=== PATIENT | female | born 1935 | race Caucasian/White ===

== ENCOUNTER 2016-07-02 09:57 | Inpatient (IN) ==
[2016-07-02 11:48] LABS: Mean Cell Volume 85.7 fL (80.0-100.0); Mean Corpuscular HGB Conc 31.8 g/dL (31.0-36.0); Mean Corpuscular Hemoglobin 27.3 pg (26.0-34.0); Platelet Count 370 K/mcL (140-440)
[2016-07-02 12:18] LABS: ALT/SGPT 25 U/l (0-40); Albumin 2.6 gm/dL (3.2-5.2); Albumin/Globulin Ratio 0.6 (1.0-2.3); Alkaline Phosphatase 109 U/L (39-117); Blood Urea Nitrogen 26 mg/dl (8-23)
[2016-07-02 12:25] LABS: Band Neutrophils % 8 % (0-10); Lymphocytes % 4 % (15-49); Monocytes % (Manual) 1 % (1-9); Platelet Estimate NORMAL (NORMAL); RBC Morphology NORMAL (NORMAL); Segmented Neutrophils % 87 % (38-78)
[2016-07-02] MEDS ORDERED: VANCOMYCIN PER PHARMACY IV ONE ×2 (12:57→14:52)
[2016-07-02] MEDS ORDERED: VANCOMYCIN 1,000 MG in 0.9 % SODIUM CHLORIDE 250 ML IV ONE (13:00)
--- NOTE | 2016-07-02 13:05 | Emergency Department Note ---
Skin/Abscess/FB HPI - General Chief complaint: Wound/Laceration Stated complaint: Tailbone decubitis Time Seen by Provider: 07/02/16 10:42 Source: other Mode of arrival: EMS - History of Present Illness HPI Narrative: 81-year-old female referred to the wound care clinic today and seen by Dr. Bacon for the first time. He had referred her to the ED to be admitted. She has a deep cubitus ulcer in the coccygeal region. And he is scheduling her for debridement tomorrow. She has Alzheimer's dementia and she is verbally unresponsive, which is her baseline and is cared for by care providers at home as well as her . Her states that she's had a decubiti for many months, but states it has gotten worse in the past week - Related Data Home Medications Medication Instructions Recorded Confirmed Calcium Carbonate/Vitamin D3 1 tab PO TID 05/01/15 07/02/16 [Calcium 600 + Vit D 400 Tablet] Multi Vitamin 1 tab PO DAILY 05/01/15 07/02/16 Aspirin/Calcium Carbonate/Mag 325 mg PO 07/02/16 [Aspirin Buffered 325 mg Tab] Allergies Allergy/AdvReac Type Severity Reaction Status Date / Time nitrofurantoin Allergy Unknown Verified 07/02/16 10:02 [From Furadantin] Sulfa (Sulfonamide Allergy Unknown Verified 07/02/16 10:02 Antibiotics) Review of Systems Constitutional: Denies: fever Eyes: Denies: eye pain ENT ED: Denies: ear pain Cardiovascular: Denies: chest pain Respiratory: Denies: cough Integumentary: Reports: as per HPI, other (large decitus ulcer sacrococcygeal region) Past Medical History - Past Medical History Medical history: Reports: dementia Physical Exam - General Limitations: no limitations General appearance: alert - Head Head exam: atraumatic - Eye Eye exam: Present: normal appearance - ENT ENT exam: normal exam - Neck Neck exam: Present: normal inspection, full ROM - Chest Chest inspection: Present: normal inspection - Respiratory Respiratory exam: Present: normal lung sounds bilaterally, respiratory distress - Cardiovascular Cardiovascular exam: Present: regular rate, normal rhythm - Abdominal Exam Abdominal exam: Present: soft, distention - Extremities Exam Extremities exam: Present: normal inspection, full ROM - Back Exam Back exam: Present: other (large decubitus ulcer posterior saccral region) - Neurological Exam Neurological exam: Absent: motor sensory deficit - Psychiatric Psychiatric exam: Present: other (Alzheimer dementia with aphasia) Course Vital Signs Temperature 97.0 F L 07/02/16 09:58 Pulse Rate 99 H 07/02/16 09:58 Respiratory Rate 20 07/02/16 09:58 Blood Pressure 121/67 07/02/16 09:58 Pulse Oximetry (%) 100 07/02/16 09:58 Temperature 97.0 F L 07/02/16 09:58 Pulse Rate 84 07/02/16 12:56 Respiratory Rate 24 07/02/16 12:56 Blood Pressure 117/66 07/02/16 12:56 Pulse Oximetry (%) 97 07/02/16 12:56 Skin/Abscess/Foreign Body - Lab Data Result diagrams: 07/02/16 10:45 07/02/16 10:45 Lab Results 07/02/16 07/02/16 07/02/16 Range/Units 10:45 10:45 10:45 WBC 15.6 H (4.5-11.0) K/mcL RBC 3.40 L (4.00-5.20) M/mcL Hgb 9.3 L (12.0-15.0) g/dL Hct 29.1 L (36.0-48.0) % MCV 85.7 (80.0-100.0) fL MCH 27.3 (26.0-34.0) pg MCHC 31.8 (31.0-36.0) g/dL RDW 15.0 H (11.5-14.5) % Plt Count 370 (140-440) K/mcL MPV 7.7 (7.4-10.4) fL Total Counted 100 Seg Neutrophils % 87 H (38-78) % Band Neutrophils % 8 (0-10) % Lymphocytes % 4 L (15-49) % Monocytes % (Manual) 1 (1-9) % Platelet Estimate Normal (NORMAL) RBC Morphology Normal (NORMAL) VBG Lactic Acid 1.6 (0.5-2.2) mmol/L Sodium 141 (133-145) mmol/L Potassium 4.2 (3.3-5.1) mmol/L Chloride 102 (96-108) mmol/L Carbon Dioxide 28 (22-30) mmol/L Anion Gap 11.0 (8-16) BUN 26 H (8-23) mg/dl Creatinine 0.8 (0.6-1.1) mg/dl GFR Calculation 70 Glucose 112 H (70-105) mg/dL Calcium 9.6 (8.6-10.4) mg/dl Total Bilirubin 0.2 (0.0-1.0) mg/dL AST 32 (0-37) U/l ALT 25 (0-40) U/l Alkaline Phosphatase 109 (39-117) U/L Total Protein 6.7 (5.9-8.4) gm/dL Albumin 2.6 L (3.2-5.2) gm/dL Globulin 4.1 H (2.2-3.7) gm/dL Albumin/Globulin Ratio 0.6 L (1.0-2.3) Disposition Clinical Impression: Decubitus ulcer Condition: Serious Referrals: Priscilla Stock MD [Primary Care Provider] -
--- NOTE | 2016-07-02 14:02 | Consultation ---
DATE OF CONSULTATION: 07/02/2016 REQUESTING PHYSICIAN: Amadeo Narayan MD REASON FOR CONSULTATION: Management of medical issues along with severe sepsis. HISTORY OF CHIEF COMPLAINT: The patient is an 81-year-old with advanced Alzheimer's dementia, nonverbal. She is currently living with her who is the primary care provider. The patient over the last few months has developed right gluteal decubitus ulcer which has progressively gotten worse. Today, she was evaluated in the wound care clinic by Dr. Narayan after she was directed by primary care physician, Dr. Stock with increasing concerns of sepsis and large area of necrotic lesion. The patient was subsequently referred to [facility] for further evaluation. Initial workup was significant for white count of over 15,000 along with sepsis and putrid foul smelling odor with a large 5 x 5 cm area of stage IV decubitus ulcer with underlying cavitation and necrotic tissue with eschar. The patient received first dose of antibiotics and was subsequently admitted under Wound Care Service for antibiotics, wound debridement, continued wound care and as per Dr. Narayan's recommendation, possible surgical consult for colostomy. At the time of examination, no family members are present. The patient is totally nonverbal and no further history could be obtained. Most of the history was reviewed from prior medical records. I discussed the case with wound care physician Dr. Narayan and explained the complexity of wound requiring tertiary Center management, however wound care physician recommended most of the care can be provided [facility] in consultation with surgery. I was asked to manage patient existing medical issues. REVIEW OF SYSTEMS: Ten-point review of systems was attempted, could not be performed. PAST MEDICAL HISTORY: 1. Hyperlipidemia 2. Alzheimer's. 3. Hypertension. 4. History of non-Hodgkin lymphoma. 5. Osteopenia. 6. Compression fractures. 7. Peripheral vascular disease. FAMILY HISTORY: Significant for myocardial infarction in mother. SOCIAL HISTORY: The patient lives alone with her . She has advanced dementia and requires full-time assistance and care from her . The patient carries over a [id number] history of smoking in the past, has been three times. She sees primary care physician, Dr. Priscilla Stock. No significant recent alcoholism. CURRENT MEDICATIONS: List is being verified. 1. Aspirin 325 mg daily. 2. Multivitamin 1 tab daily. 3. Calcium 1 tab t.i.d. ALLERGIES: KNOWN TO: 1. NITROFURANTOIN. 2. SULFA. PHYSICAL EXAMINATION: GENERAL: The patient is totally nonverbal; however, does not appear to be distressed. BMI 20, height 5 feet 7 inches. VITAL SIGNS: Blood pressure 97/60, respiration rate 21, temperature 97, pulse 93, sats 98% on room air. HEENT: Pupils symmetric. Oral cavity is dry. No ear or nose discharge. Head is normocephalic, atraumatic. NECK: No lymphadenopathy. CHEST: S1 and S2 heard, irregular rhythm. Ejection systolic murmur grade 1. Diminished breath sounds at bases, carotid bruit noted. ABDOMEN: Soft, nontender. There is a large 5 x 5 cm area of stage IV decubitus ulcer with overhanging flap and underlying necrotic base with putrid, foul-smelling odor. LOWER EXTREMITIES: No cyanosis or clubbing. No joint swelling. SKIN: Otherwise, no suspicious lesions. PSYCHIATRIC: No anxiety or agitation but nonverbal, does not follow verbal commands. NEURO: Could not be performed. The patient does not follow verbal commands in light of baseline mental status from Alzheimer's. LABS AND IMAGING: White count 15.6, hemoglobin 9.3, platelets 370, lactic acid 1.6, sodium 141, potassium 4.2, creatinine 1.8, BUN 26. LFTs unremarkable. ASSESSMENT AND PLAN: An 81-year-old with infected sacral decubitus ulcer with possible underlying osteomyelitis and sepsis. 1. Severe sepsis by criteria secondary to sacral decubitus ulcer with cellulitis and probably osteomyelitis. Continue broad antibiotic coverage. 2. Sacral decubitus ulcer. Will be managed as per Wound Care including debridement/ wound dressing/possible colostomy. 3. Other prior medical issues. At this time, current medications are being verified and will be restarted on home meds. a. History of Alzheimer's dementia, fairly advanced at baseline. AA:rick Job ID: [id number] Doc ID: [id number] Jayy Narayan MD [facility]
[2016-07-02] MEDS ORDERED: traZODone HCL 50 MG TABLET PO PRN (14:52)
[2016-07-02] MEDS ORDERED: guaiFENesin/CODEINE 10 ML UDC PO PRN (14:52)
[2016-07-02] MEDS ORDERED: MAGNESIUM SULFATE 2 GM/50 ML BAG IV PRN (14:52)
[2016-07-02] MEDS ORDERED: ACETAMINOPHEN 325 MG TABLET PO PRN (14:52)
[2016-07-02] MEDS ORDERED: POTASSIUM CHLORIDE 20 MEQ PACKET PO PRN (14:52)
[2016-07-02] MEDS ORDERED: ACETAMINOPHEN 1,000 MG/100 ML BOTTLE IV PRN (14:52)
[2016-07-02] MEDS ORDERED: ONDANSETRON 4 MG/2 ML VIAL IV PRN (14:52)
[2016-07-02] MEDS: 0.9 % SODIUM CHLORIDE 1,000 ML IV SCH (15:00)
[2016-07-02 15:14] LABS: C-Reactive Protein 14.7 mg/dl (0.0-0.8)
[2016-07-02] MEDS: 0.9 % SODIUM CHLORIDE 10 ML SYRINGE IV SCH ×2 (15:41→21:43)
[2016-07-02 15:43] LABS: Appearance,Urine CLOUDY; Bacteria,Urine 0 /hpf (0); Bilirubin,Urine NEG (NEG); Calcium Oxalate Crystals,Urine FEW /hpf (0); Color,Urine YELLOW; Glucose,Urine (UA) NEGATIVE (NEG); Leukocyte Esterase,Urine NEG /uL (NEG); Mucus,Urine MANY /hpf (0); Nitrate,Urine NEG (NEG); Protein,Urine 30 mg/dL (NEG); Specific Gravity,Urine 1.026 (1.000-1.035); Urine Blood NEG mg/dL (<0.03); Urine RBC 3 /hpf (0-1); Urine Squamous Epithelial Cell 3 /hpf (0-4); Urine Transitional Epi Cells 1 /hpf (0-2); Urine WBC 8 /hpf (0-4); Urobilinogen,Urine NEG (NEG)
--- NOTE | 2016-07-02 17:17 | General Surgery Consult Note ---
[id number] Date: [] Patient: Sunita Gomes 81 y/o F admitted on 07/02/16 for Tailbone Decubitis. Chief Complaint: [] Consult date: 07/02/16 Requesting physician: Jayy Bailon History of present illness: Patient seen in wound care clinic for FIRST time today. She was brought in by Glueline Worker. 81/F Multiple medical problems and long standing Dementia. Lives with her . She has had a sacral skin lesion for some time and was cared for by topical application of Medi Honey for the past week or so. During shower, the scab fell off and led to necrotic foul smelling drainage and black gangrenous eschar. Patient is incontinent of urine and in diapers. She presented with SEPSIS due to complicated skin and skin structure infection with gangrene and suspect with urinary tract infection as well. She was referred to ER. Started on IV antibiotics and basic blood work undertaken. I will be following patient from wound care point of view. Spoke with Dr. Bailon, Hospitalist Physician, Cinthia GARCÍA and PRANAV. Will speak with family members. Agree with current antibiotic choice of Zosyn and Vancomycin, Wound care orders entered. Review of Systems - Constitutional anorexia, fever(s), lethargy, malaise, weight loss, other (MALNOURISHED. Dementia) - EENT Nose, mouth and throat: as per HPI - Integumentary other (Skin ulcer sacral and coccygeal treated at home with Medi Honey for past few days) Medications and Allergies Home Medications Medication Instructions Recorded Confirmed Type Calcium Carbonate/Vitamin D3 1 tab PO TID 05/01/15 07/02/16 History [Calcium 600 + Vit D 400 Tablet] Multi Vitamin 1 tab PO DAILY 05/01/15 07/02/16 History Aspirin/Calcium Carbonate/Mag 325 mg PO QAM 07/02/16 07/02/16 History [Aspirin Buffered 325 mg Tab] Allergies Allergy/AdvReac Type Severity Reaction Status Date / Time Sulfa (Sulfonamide Allergy Severe Unknown Verified 07/02/16 15:24 Antibiotics) nitrofurantoin Allergy Unknown Verified 07/02/16 10:02 [From Furadantin] Exam Temp Pulse Resp BP Pulse Ox 98.2 F 88 24 123/72 96 07/02/16 15:37 07/02/16 15:37 07/02/16 15:37 02/14/17 15:37 07/02/16 15:37 - General physical appearance well developed, no distress, chronically ill - Eyes PERRL, normal ocular movement - ENT normal pinna, normal nares, normal mucosa, no congestion - Head Head exam IM: Present: atraumatic, normal inspection, normocephalic - Neck no masses, no bruits, trachea midline, no lymphadectomy, no venous distension - Cardiovascular Cardiovascular exam IM: Present: normal rate and rhythm - Respiratory normal expansion, normal respiratory effort, clear to auscultation - Abdomen Abdomen: Present: soft, non tender, bowel sounds - Genitourinary Present: other ( ?? incontinent of urine) - Rectum Rectum: Present: other (Rectal exam not done. ) - Integumentary Present: other (Grade 3/4 sacral pressure ulcer with perwound erythema and gangrenous / necrotic skin and subcutaneous tissue with exposed bone and covered withnecrotic debris) - Neurologic Present: other (Moves all extremities and grossly no focal neurological deficits. HMF not checked. Dementia) Results - Labs 07/03/16 03:55 07/03/16 03:55 Abnormal lab results 07/02/16 Range/Units 15:01 Urine Protein 30 A (NEG) mg/dL Urine RBC 3 H (0-1) /hpf Urine WBC 8 H (0-4) /hpf Calcium Oxalate Crystal Few A (0) /hpf Urine Mucus Many A (0) /hpf All other labs normal. Assessment and Plan (1) Sepsis affecting skin For Hospitalist Medical Evaluation followed by OR surgical debridement and tissue cultures Status: Acute Priority: High (2) Pressure ulcer of coccygeal region, stage 4 OR debridement Status: Acute (3) Malnutrition compromising bodily function Await Hospitalist and Data Communications Software Consultant / Rubber Mixer input and management for optimal wound care and healing. Status: Acute
[2016-07-02] MEDS: PIPERACILLIN SODIUM/TAZOBACTAM 3.375 GM in DEXTROSE 5% IN WATER 50 ML IV SCH ×2 (17:57→22:50)
[2016-07-02] MEDS: HEPARIN 5,000 UNIT/ML VIAL SQ SCH (21:42)
[2016-07-02] MEDS: DOCUSATE SODIUM 100 MG CAPSULE PO SCH (21:42)
[2016-07-02] MEDS: SENNOSIDES/DOCUSATE SODIUM 1 TAB TABLET PO SCH (21:43)
[2016-07-02] MEDS: GENTAMICIN SULFATE 40 MG, CLINDAMYCIN 300 MG, BACITRACIN 25,000 UNIT in SODIUM CHLORIDE... IRR SCH (22:50)
[2016-07-03] MEDS: PIPERACILLIN SODIUM/TAZOBACTAM 3.375 GM in DEXTROSE 5% IN WATER 50 ML IV SCH ×5 (00:02→23:45)
[2016-07-03] MEDS: 0.9 % SODIUM CHLORIDE 10 ML SYRINGE IV SCH ×3 (05:00→20:31)
[2016-07-03 05:19] LABS: Mean Cell Volume 84.5 fL (80.0-100.0); Mean Corpuscular HGB Conc 31.9 g/dL (31.0-36.0); Mean Corpuscular Hemoglobin 26.9 pg (26.0-34.0); Platelet Count 349 K/mcL (140-440); RBC 3.09 M/mcL (4.00-5.20); Red Cell Distribution Width 14.8 % (11.5-14.5)
[2016-07-03 05:46] LABS: ALT/SGPT 18 U/l (0-40); Albumin 2.1 gm/dL (3.2-5.2); Albumin/Globulin Ratio 0.6 (1.0-2.3); Alkaline Phosphatase 102 U/L (39-117); Bilirubin,Direct < 0.2 mg/dL (0.0-0.3); Blood Urea Nitrogen 21 mg/dl (8-23); Gamma Glutamyl Transpeptidase 22 U/L (5-36); Magnesium 1.6 mg/dL (1.6-2.5); Phosphorous 2.8 mg/dL (2.7-4.5); Uric Acid 5.1 mg/dL (2.5-8.0)
[2016-07-03 08:37] LABS: Band Neutrophils % 4 % (0-10); Lymphocytes % 11 % (15-49); Monocytes % (Manual) 4 % (1-9); Platelet Estimate NORMAL (NORMAL); RBC Morphology NORMAL (NORMAL); Segmented Neutrophils % 81 % (38-78)
[2016-07-03] MEDS ORDERED: MULTIVIT,THER IRON,CA,FA & MIN 1 TABLET PO SCH (09:00)
[2016-07-03] MEDS: HEPARIN 5,000 UNIT/ML VIAL SQ SCH ×2 (09:00→21:29)
--- NOTE | 2016-07-03 11:14 | Internal Med Progress Note ---
Medical - PN: Subj Patient information: Note initiated : 07/03/16 at 11:11 am Service Date, if different from initiated Date: [] Patient: Sunita Gomes 81 y/o F admitted on 07/02/16 for Infected Sacral Decubitus Ulcer/Sepsis. Chief Complaint: [] Interval history: 07/02- 81-year-old with advanced Alzheimer's dementia admitted by wound care physician Dr. Narayan with stage IV sacral decubitus ulcer with cellulitis and likely osteomyelitis. hospitalist consult for management of sepsis. On vancomycin and Zosyn. 07/03- patient seen in room along with . is awaiting other family members to help him decide future goals of care. He wishes patient to be transferred on discharge to a senior living home as he is unable to provide care for her due to increasing needs associated with profound Alzheimer's dementia. No overnight fever or chills or concerns per staff. No anxiety or agitation noted - Constitutional Vitals: Vital Signs Temp Pulse Resp BP Pulse Ox 96.5 F L 79 14 117/67 96 07/03/16 07:59 07/03/16 07:59 07/03/16 07:59 07/03/16 07:59 07/03/16 07:59 Period Temp Pulse Resp BP Sys/Chase Pulse Ox Last 24 Hr 96.5 F-98.4 F 76-95 14-24 112-123/59-72 95-97 Intake and Output 07/02/16 07/03/16 07/03/16 21:59 05:59 13:59 Intake Total 300 / 300 50 / 50 50 / 50 Output Total 350 / 350 Balance 300 / 300 -300 / -300 50 / 50 Weight 111 lb Intake & Output: Intake & Output 07/02/16 07/03/16 07/03/16 21:59 05:59 13:59 Intake Total 300 / 300 50 / 50 50 / 50 Output Total 350 / 350 Balance 300 / 300 -300 / -300 50 / 50 Weight 111 lb Intake: IV 300 / 300 50 / 50 50 / 50 Dextrose 5% in Water 50 50 / 50 50 / 50 50 / 50 ml @ 100 mls/hr IV Q6H LEELA with Zosyn 3.375 gm Rx#:[id number] Sodium Chloride 0.9% 250 250 / 250 ml @ 250 mls/hr IV ONCE ONE with Vancomycin 1,000 mg Rx#:[id number] Oral 0 / 0 Output: Urine Catheter Amount 350 / 350 General appearance: no acute distress Exam: patient appears in a trancelike state Nonverbal Nondistressed Extensive sacral decubitus ulcer with necrotic base /eschar. photographs documented Medical - PN: Obj Da - Labs CBC & Chem 7: 07/03/16 03:55 07/03/16 03:55 Labs: Abnormal Lab Results 07/03/16 07/03/16 07/02/16 03:55 03:55 16:09 WBC 14.4 H RBC 3.09 L Hgb 8.3 L Hct 26.1 L RDW 14.8 H Seg Neutrophils % 81 H Lymphocytes % 11 L ESR 65 H Chloride 109 H Calcium 8.4 L Total Protein 5.8 L Albumin 2.1 L Albumin/Globulin Ratio 0.6 L Triglycerides 173 H Urine Protein Urine RBC Urine WBC Calcium Oxalate Crystal Urine Mucus 07/02/16 15:01 WBC RBC Hgb Hct RDW Seg Neutrophils % Lymphocytes % ESR Chloride Calcium Total Protein Albumin Albumin/Globulin Ratio Triglycerides Urine Protein 30 A Urine RBC 3 H Urine WBC 8 H Calcium Oxalate Crystal Few A Urine Mucus Many A Meds: Medications Acetaminophen (Tylenol) 650 mg PO Q4-6HP PRN PRN Reason: PAIN/FEVER > 101 Docusate Sodium (Colace) 100 mg PO BID [facility] Last Admin: 07/02/16 21:42 Dose: Not Given Guaifenesin/Codeine Phosphate (Robitussin Ac) 10 ml PO Q4HP PRN PRN Reason: Cough Heparin Sodium (Porcine) (Heparin) 5,000 unit SQ Q12 [facility] Last Admin: 07/02/16 21:42 Dose: 5,000 unit Magnesium Sulfate (Magnesium Sulfate) 2 gm in 50 mls @ 50 mls/hr IV UD PRN PRN Reason: MG = or < 1.7 Sodium Chloride (Sodium Chloride 0.9%) 1,000 mls @ 50 mls/hr IV .Q20H [facility] Stop: 07/05/16 02:51 Last Admin: 07/02/16 15:00 Dose: 50 mls/hr Acetaminophen (Ofirmev) 1,000 mg in 100 mls @ 200 mls/hr IV Q6HP PRN PRN Reason: PAIN/FEVER > 101 Piperacillin Sod/Tazobactam (Sod 3.375 gm/ Dextrose) 50 mls @ 100 mls/hr IV Q6H [facility] Last Infusion: 07/03/16 06:22 Dose: Infused Vancomycin HCl 1,000 mg/ (Sodium Chloride) 250 mls @ 250 mls/hr IV Q24H [facility] Gentamicin Sulfate 40 mg/Clindamycin Phosphate 300 mg/Bacitracin 25,000 unit/ Sodium Chloride 503 mls @ 0 mls/hr IRR BID LEELA PRN Reason: As Directed Last Admin: 07/02/16 22:50 Dose: Not Given Iron Carb/Multivit/Botetourt/Folic Acid (Multivitamin W/Minerals) 1 tab PO DAILY LEELA Ondansetron HCl (Zofran) 4 mg IV Q4-6HP PRN PRN Reason: Nausea And Vomiting Pantoprazole Sodium (Protonix) 40 mg PO QAMAC LEELA Potassium Chloride (Klor-Con) 40 meq PO DAILYP PRN PRN Reason: K+ < 3.5 Senna/Docusate Sodium (Senna Plus Tablet) 1 tab PO HS [facility] Last Admin: 07/02/16 21:43 Dose: Not Given Sodium Chloride (Saline Flush) 10 ml IV Q8 [facility] Last Admin: 07/03/16 05:00 Dose: Not Given Trazodone HCl (Desyrel) 50 mg PO HSP PRN PRN Reason: Insomnia Medical - PN: A/P - Time Spent With Patient Total time spent is greater than 50% in coordination of care (as documented) at patient's floor/unit and/or counseling patient: 25 - 35 minutes (1) Severe sepsis Status: Acute Assessment and plan: * Severe sepsis-managed for criteria. Continue antibiotics including vancomycin and Zosyn. Cultures awaited. Secondary to sacral infected decubitus ulcer * Infected sacral decubitus ulcer- managed by wound care. * Advanced Alzheimer's dementia-at baseline Plan * Wound management per Dr. Narayan * antibiotic coverage as above and de-escalate based on culture sensitivities * case management to coordinate SNF transfer on discharge Current Visit: Yes
[2016-07-03] MEDS ORDERED: 0.9 % SODIUM CHLORIDE 250 ML IV SCH (12:00)
[2016-07-03] MEDS ORDERED: VANCOMYCIN 1,000 MG in 0.9 % SODIUM CHLORIDE 250 ML IV SCH (13:00)
[2016-07-03] MEDS: DOCUSATE SODIUM 100 MG CAPSULE PO SCH ×2 (13:25→20:30)
[2016-07-03] MEDS: PANTOPRAZOLE 40 MG TABLET PO SCH (13:25)
[2016-07-03] MEDS: GENTAMICIN SULFATE 40 MG, CLINDAMYCIN 300 MG, BACITRACIN 25,000 UNIT in SODIUM CHLORIDE... IRR SCH ×2 (13:26→21:30)
[2016-07-03] MEDS: 0.9 % SODIUM CHLORIDE 1,000 ML IV SCH (14:24)
[2016-07-03] MEDS ORDERED: MIDAZOLAM 2 MG/2 ML VIAL IV ONE (15:05)
[2016-07-03] MEDS ORDERED: PROPOFOL 200 MG/20 ML VIAL IV ONE (15:05)
[2016-07-03] MEDS ORDERED: ONDANSETRON 4 MG/2 ML VIAL IV ONE (15:05)
[2016-07-03] MEDS ORDERED: fentaNYL 100 MCG/2 ML VIAL IV ONE (15:05)
[2016-07-03] MEDS ORDERED: DEXAMETHASONE 10 MG/ML VIAL IV ONE (15:05)
[2016-07-03] MEDS ORDERED: LIDOCAINE HCL/PF 100 MG/5 ML SYRINGE IV ONE (15:05)
[2016-07-03] MEDS ORDERED: LACTATED RINGERS 250 ML IV PRN (15:54)
[2016-07-03] MEDS ORDERED: IPRATROPIUM/ALBUTEROL 3 ML AMPUL.NEB NEB PRN (15:54)
[2016-07-03] MEDS ORDERED: FLUMAZENIL 0.1 MG/ML ML IV PRN (15:54)
[2016-07-03] MEDS ORDERED: ONDANSETRON 4 MG/2 ML VIAL IV PRN (15:54)
[2016-07-03] MEDS ORDERED: diphenhydrAMINE 50 MG/ML VIAL IV PRN (15:54)
[2016-07-03] MEDS ORDERED: fentaNYL 100 MCG/2 ML VIAL IV PRN (15:54)
[2016-07-03] MEDS ORDERED: NALOXONE HCL 0.4 MG/ML VIAL IV PRN (15:54)
[2016-07-03] MEDS ORDERED: LACTATED RINGERS 1,000 ML IV SCH (16:00)
--- NOTE | 2016-07-03 16:27 | General Surgery Procedure Note ---
Date of procedure: Note initiated : 07/03/16 at 4:23 pm Service Date, if different from initiated Date: [] Pre-op diagnosis: Sepsis. NECROTIZING skin infection sacral decubitus 10 x8 x2 CM Post-op diagnosis: same Procedure: Excisional Debridement / Pulse lavage irrigation and open packing Findings: NECROSIS of skin, fat, ligaments and muscle. Underlying bone sacral spine and coccyx was also exposed Grade 4 decubitus/ Bone biopsies obtained. Necrotic tissue sent for pathology and for cultures. Anest[facility]: [facility] Surgeon: Amadeo Narayan Crusher Plant Operator: Regine Case Estimated blood loss: 10 Pathology: other (Bone, Necrotic tissue for Histology and Necrotic tissue for cultures.) Description of procedure: Excisional Debridement, Pulse lavage irrigation and open packing. Condition: stable Disposition: floor (Procedure well tolerated. Post operatively spoke with patient's .)
[2016-07-03] MEDS: SENNOSIDES/DOCUSATE SODIUM 1 TAB TABLET PO SCH (20:30)
[2016-07-04] MEDS: 0.9 % SODIUM CHLORIDE 10 ML SYRINGE IV SCH ×3 (05:11→21:53)
[2016-07-04] MEDS: PIPERACILLIN SODIUM/TAZOBACTAM 3.375 GM in DEXTROSE 5% IN WATER 50 ML IV SCH (05:29)
[2016-07-04 05:45] LABS: Mean Cell Volume 84.8 fL (80.0-100.0); Mean Corpuscular HGB Conc 31.8 g/dL (31.0-36.0); Platelet Count 354 K/mcL (140-440); RBC 3.05 M/mcL (4.00-5.20); Red Cell Distribution Width 15.1 % (11.5-14.5)
[2016-07-04 06:02] LABS: ALT/SGPT 16 U/l (0-40); Albumin/Globulin Ratio 0.5 (1.0-2.3); Alkaline Phosphatase 97 U/L (39-117); Bilirubin,Direct < 0.2 mg/dL (0.0-0.3); Blood Urea Nitrogen 21 mg/dl (8-23); Gamma Glutamyl Transpeptidase 20 U/L (5-36); Magnesium 1.8 mg/dL (1.6-2.5); Phosphorous 4.6 mg/dL (2.7-4.5); Uric Acid 4.5 mg/dL (2.5-8.0)
[2016-07-04 07:04] LABS: Band Neutrophils % 8 % (0-10); Lymphocytes % 8 % (15-49); Platelet Estimate NORMAL (NORMAL); RBC Morphology NORMAL (NORMAL); Segmented Neutrophils % 84 % (38-78)
[2016-07-04] MEDS: 0.9 % SODIUM CHLORIDE 1,000 ML IV SCH ×3 (07:45→14:07)
[2016-07-04] MEDS: PANTOPRAZOLE 40 MG TABLET PO SCH (07:48)
--- NOTE | 2016-07-04 08:40 | Operative Note ---
DATE OF OPERATION: 07/03/2016 PREOPERATIVE DIAGNOSES: Sepsis syndrome, necrotizing skin infection. Sacral pressure ulcer decubitus 10 x 8 x 2 cm. POSTOPERATIVE DIAGNOSES: Sepsis syndrome, necrotizing skin infection. Sacral pressure ulcer decubitus 10 x 8 x 2 cm. Underlying bone is exposed. OPERATION: Excision and debridement with pulse lavage irrigation and open packing. FINDINGS: Necrosis of skin, fat, ligaments, muscle with exposed underlying spinous processes of sacral and coccygeal regions. Bone biopsies were obtained. Necrotic tissue was sent for pathology and cultures. ANESTHESIA: General endotracheal. ANESTHESIOLOGIST: [facility]. SURGEON: Amadeo Narayan MD. UTILITY SALES AND SERVICE MANAGER: Regine Case NP. ESTIMATED BLOOD LOSS: Under 10 mL. PROCEDURE: After obtaining informed consent, patient was taken to the operating room and anesthetized on the table uneventfully using orotracheal intubation. Time out was called. She was placed in left lateral decubitus position. This was maintained with restraints. The buttocks, posterior thigh, and lower back area was widely cleaned, prepped and draped in the standard fashion. First, I excised the nonviable necrotic tissue sharply with pickup and #15 scalpel blade or pickup and Metzenbaum scissors. Step by step, all the excision of necrotic tissue was accomplished. Bleeding was controlled with hemostasis or electrocoagulation Bovie. The exposed bone was sharply excised with bone biting instruments and specimens obtained for pathology and cultures. The wound was copiously irrigated with pulse lavage irrigation system. We used 3 liters of normal saline mixed with 80 mg of gentamicin, 600 mg of clindamycin and 50,000 units of bacitracin solution. Towards completion, the field was looking clean and healthy. Backbleeding was noted from the surrounding tissues and depth. Hemostasis was achieved again with pressure and with electrocoagulation. The wound bed was covered with Xeroform gauze. It was reinforced with unfolded AMD Kerlix gauze packing soaked in Betadine. This was held in place with a vessel loop and beth. This was further reinforced with AMD gauze, ABD bandage and Medipore tape. The procedure was well tolerated. Recovered from operation uneventfully. Taken back to the floor in stable condition. Postoperatively, we spoke with the nursing staff and with patient's . VD:adrian Job ID: [id number] Doc ID: [id number] Aamdeo Narayan MD
[2016-07-04] MEDS ORDERED: ACETAMINOPHEN 325 MG TABLET PO PRN (08:55)
[2016-07-04] MEDS ORDERED: ONDANSETRON 4 MG/2 ML VIAL IV PRN (08:55)
[2016-07-04] MEDS ORDERED: traZODone HCL 50 MG TABLET PO PRN (08:55)
[2016-07-04] MEDS ORDERED: POTASSIUM CHLORIDE 20 MEQ PACKET PO PRN (08:55)
[2016-07-04] MEDS ORDERED: MAGNESIUM SULFATE 2 GM/50 ML BAG IV PRN (08:55)
[2016-07-04] MEDS ORDERED: guaiFENesin/CODEINE 10 ML UDC PO PRN (08:55)
[2016-07-04] MEDS ORDERED: IMIPENEM/CILASTATIN SODIUM 500 MG in 0.9 % SODIUM CHLORIDE 100 ML IV SCH (09:00)
--- NOTE | 2016-07-04 10:18 | Internal Med Progress Note ---
Medical - PN: Subj Patient information: Note initiated : 07/04/16 at 10:16 am Service Date, if different from initiated Date: [] Patient: Sunita Gomes 81 y/o F admitted on 07/02/16 for Debridement of Wound. Chief Complaint: [] Interval history: 07/02- 81-year-old with advanced Alzheimer's dementia admitted by wound care physician Dr. Narayan with stage IV sacral decubitus ulcer with cellulitis and likely osteomyelitis. hospitalist consult for management of sepsis. On vancomycin and Zosyn. 07/03- patient seen in room along with . is awaiting other family members to help him decide future goals of care. He wishes patient to be transferred on discharge to a senior living home as he is unable to provide care for her due to increasing needs associated with profound Alzheimer's dementia. No overnight fever or chills or concerns per staff. No anxiety or agitation noted 07/04- patient stable postoperatively however worsening white count at 18.5. Gram-negative/gram-positive bacteremia. Sensitivities and identification pending. Antibiotics escalated to imipenem. No overnight events including worsening pain/anxiety agitation fever or chills. extended family conference. Family reviewed advanced directiveswhich clearly states no artificial nutrition aggressive measures. Patient will be DNR status. Family wishes not to transfer to ICU for any aggressive measures while continuing wound care and antibiotics. Family contemplating on possible hospice and likely decide in 24-48 hours. - Constitutional Vitals: Vital Signs Temp Pulse Resp BP Pulse Ox 97.0 F L 60 20 110/60 97 07/04/16 07:00 07/04/16 07:00 07/04/16 07:00 07/04/16 07:00 07/04/16 07:08 Period Temp Pulse Resp BP Sys/Chase Pulse Ox Last 24 Hr 97.0 F-97.9 F 60-88 12-22 102-142/51-86 87-99 Intake and Output 07/03/16 07/04/16 07/04/16 21:59 05:59 13:59 Intake Total 1400 / 1400 50 / 50 Output Total 50 / 50 450 / 450 Balance 1350 / 1350 -400 / -400 Weight 116 lb Intake & Output: Intake & Output 02/15/17 02/16/17 02/16/17 21:59 05:59 13:59 Intake Total 1400 / 1400 50 / 50 Output Total 50 / 50 450 / 450 Balance 1350 / 1350 -400 / -400 Weight 116 lb Intake: IV 1400 / 1400 50 / 50 Dextrose 5% in Water 50 50 / 50 50 / 50 ml @ 100 mls/hr IV Q6H [facility] with Zosyn 3.375 gm Rx#:[id number] Sodium Chloride 0.9% 250 250 / 250 ml @ 250 mls/hr IV Q24H [facility] with Vancomycin 1,000 mg Rx#:[id number] Output: Urine Catheter Amount 450 / 450 Estimated Blood Loss 50 / 50 General appearance: no acute distress Exam: nonverbal profound Alzheimer's dementia Nonlabored breathing no agitation Medical - PN: Obj Da - Labs CBC & Chem 7: 07/04/16 03:48 07/04/16 03:48 Labs: Abnormal Lab Results 07/04/16 07/04/16 07/03/16 03:48 03:48 03:55 WBC 18.2 H RBC 3.05 L Hgb 8.2 L Hct 25.8 L RDW 15.1 H Seg Neutrophils % 84 H Lymphocytes % 8 L ESR Chloride 109 H Carbon Dioxide 20 L Anion Gap 17.0 H Glucose 113 H Calcium 7.9 L 8.4 L Phosphorus 4.6 H Total Protein 5.7 L 5.8 L Albumin 2.0 L 2.1 L Albumin/Globulin Ratio 0.5 L 0.6 L Triglycerides 173 H Urine Protein Urine RBC Urine WBC Calcium Oxalate Crystal Urine Mucus 07/03/16 07/02/16 07/02/16 03:55 16:09 15:01 WBC 14.4 H RBC 3.09 L Hgb 8.3 L Hct 26.1 L RDW 14.8 H Seg Neutrophils % 81 H Lymphocytes % 11 L ESR 65 H Chloride Carbon Dioxide Anion Gap Glucose Calcium Phosphorus Total Protein Albumin Albumin/Globulin Ratio Triglycerides Urine Protein 30 A Urine RBC 3 H Urine WBC 8 H Calcium Oxalate Crystal Few A Urine Mucus Many A Meds: Medications Acetaminophen (Tylenol) 650 mg PO Q4-6HP PRN PRN Reason: PAIN/FEVER > 101 Docusate Sodium (Colace) 100 mg PO BID [facility] Guaifenesin/Codeine Phosphate (Robitussin Ac) 10 ml PO Q4HP PRN PRN Reason: Cough Heparin Sodium (Porcine) (Heparin) 5,000 unit SQ Q12 [facility] Magnesium Sulfate (Magnesium Sulfate) 2 gm in 50 mls @ 50 mls/hr IV UD PRN PRN Reason: MG = or < 1.7 Imipenem/Cilastatin Sodium 500 (mg/ Sodium Chloride) 100 mls @ 100 mls/hr IV Q8H [facility] Sodium Chloride (Sodium Chloride 0.9%) 1,000 mls @ 50 mls/hr IV .Q20H [facility] Stop: 07/05/16 02:51 Acetaminophen (Ofirmev) 1,000 mg in 100 mls @ 200 mls/hr IV Q6HP PRN PRN Reason: PAIN/FEVER > 101 Vancomycin HCl 1,000 mg/ (Sodium Chloride) 250 mls @ 250 mls/hr IV Q24H [facility] Iron Carb/Multivit/[place]/Folic Acid (Multivitamin W/Minerals) 1 tab PO DAILY [facility] Ondansetron HCl (Zofran) 4 mg IV Q4-6HP PRN PRN Reason: Nausea And Vomiting Pantoprazole Sodium (Protonix) 40 mg PO QAMAC [facility] Potassium Chloride (Klor-Con) 40 meq PO DAILYP PRN PRN Reason: K+ < 3.5 Senna/Docusate Sodium (Senna Plus Tablet) 1 tab PO HS [facility] Sodium Chloride (Saline Flush) 10 ml IV Q8 [facility] Trazodone HCl (Desyrel) 50 mg PO HSP PRN PRN Reason: Insomnia Medical - PN: A/P - Time Spent With Patient Total time spent is greater than 50% in coordination of care (as documented) at patient's floor/unit and/or counseling patient: 25 - 35 minutes (1) Severe sepsis Status: Acute Assessment and plan: * Gram-negative/gram-positive bacteremia-likely source infected decubitus ulcer. perform surveillance cultures * Antibiotics to imipenem/vancomycin * Severe sepsis- worsening leukocytosis at 18,000. Continue broad antibiotic coverageand de-escalate based on culture sensitivities results * Infected sacral decubitus ulcer- managed by wound care. post debridement and packing. * Advanced Alzheimer's dementia-at baseline Plan * postoperative care/wound management per Dr. Narayan * de-escalate antibiotic coverage to imipenem * Surveillance cultures * Family refuses to transfer patient to ICU in light of patient's advanced directive. Critically ill high risk mortality. * DNR status * family contemplating on hospice and likely decide in 24-48 hours Current Visit: Yes
[2016-07-04] MEDS: MULTIVIT,THER IRON,CA,FA & MIN 1 TABLET PO SCH (10:22)
[2016-07-04] MEDS: DOCUSATE SODIUM 100 MG CAPSULE PO SCH ×2 (10:22→22:08)
[2016-07-04] MEDS: HEPARIN 5,000 UNIT/ML VIAL SQ SCH ×2 (10:22→22:05)
[2016-07-04] MEDS: ACETAMINOPHEN 1,000 MG/100 ML BOTTLE IV PRN ×2 (10:51→19:22)
--- NOTE | 2016-07-04 12:54 | Surgical Pathology Report ---
HISTOLOGY SPECIMEN MICROSCOPIC DIAGNOSIS SPECIMEN A - BONE, SACRUM, BIOPSY: -- TRABECULAR BONE WITH ACUTE OSTEOMYELITIS. SPECIMEN B - SOFT TISSUE, SACRUM, BIOPSY: -- FIBROCOLLAGENOUS SOFT TISSUE WITH SUPPURATIVE INFLAMMATION AND NECROSIS. -- FRAGMENTS OF NONVIABLE TRABECULAR BONE. SPECIMEN C - BONE, SACRAL SPINE, BIOPSY: -- TRABECULAR BONE WITH ACUTE OSTEOMYELITIS. (SE:ruben) COMMENT: Correlation with cultures and other clinical and radiographic findings is recommended. PROCEDURAL IMPRESSION Necrotic sacral ulcer. GROSS DESCRIPTION Specimen A: Received in formalin labeled with "A", is a firm pink-brewster piece of tissue that is 1.8 x 0.8 x 0.4 cm. One end has a león-brewster color. The specimen is trisected and entirely submitted - one cassette, following light decalcification. Specimen B: Received in formalin labeled with "B", are two león-brewster tissue fragments. The first is 2.0 x 1.4 x 0.4 cm. The second is 6.7 by up to 3.5 by up to 0.9 cm. Cut surfaces are pink-león. Drug Abuse Treatment Specialist sections of the first fragment in B1 and the second in B2. Specimen C: Received in formalin labeled with "C", are three firm pink-brewster tissue fragments 0.9 x 0.4 x 0.2 to 1.2 x 0.7 x 0.7 cm. Cut surfaces are firm, brewster. Sectioned, entirely submitted - one cassette, following light decalcification. (SCB:minnie) Electronically Signed by: Vielka Friedman D.O.
[2016-07-04] MEDS ORDERED: VANCOMYCIN 1,000 MG in 0.9 % SODIUM CHLORIDE 250 ML IV SCH (13:00)
[2016-07-04] MEDS: IMIPENEM/CILASTATIN SODIUM 500 MG in 0.9 % SODIUM CHLORIDE 100 ML IV SCH ×2 (17:00→23:27)
--- NOTE | 2016-07-04 20:22 | General Surgery Progress Note ---
Subjective Patient reports: other (postoperative day #1 patient was seen along with nursing staff and later in the evening again. Spoke at length with family members. ) Narrative: Note initiated : 07/04/16 at 8:20 pm Service Date, if different from initiated Date: [] Patient: Sunita Gomes 81 y/o F admitted on 07/02/16 for Debridement of Wound. Chief Complaint: [] Objective Temp Pulse Resp BP Pulse Ox 97.6 F 78 20 122/70 98 07/04/16 16:39 07/04/16 16:39 07/04/16 16:39 07/04/16 16:39 07/04/16 16:39 S/P Excision debridement of infected gangrenous sacral pressure ulcer. H/O Sepsis syndrome. Earlier today we had a conference with patient's family members , hospitalist, myself and nursing staff about the current situation of this patient and plan of care on an ongoing basis. Low grade fever. Tachycardia, anemia , VSS. Yellow urine in bag. Not in acute cardiac respiratory distress. Ongoing medical management and wound care discussed. Lab results reviewed. Wound cultures and blood cultures are positive for GPC and GNB/ - Additional Data Intake & Output - Last 24 hours: Intake & Output 07/02/16 07/03/16 07/04/16 07/05/16 05:59 05:59 05:59 05:59 Intake Total 350 / 350 2550 / 2550 2430 / 2430 Output Total 350 / 350 500 / 500 350 / 350 Balance 0 / 0 2049 / 2049 2080 / 2080 Weight 111 lb 116 lb 116 lb - Labs 07/05/16 03:48 07/05/16 03:48 Diabetes panel 07/04/16 Range/Units 03:48 Sodium 143 (133-145) mmol/L Potassium 4.3 (3.3-5.1) mmol/L Chloride 106 (96-108) mmol/L Carbon Dioxide 20 L (22-30) mmol/L BUN 21 (8-23) mg/dl Creatinine 0.9 (0.6-1.1) mg/dl Glucose 113 H (70-105) mg/dL Calcium 7.9 L (8.6-10.4) mg/dl AST 19 (0-37) U/l ALT 16 (0-40) U/l Alkaline Phosphatase 97 (39-117) U/L Total Protein 5.7 L (5.9-8.4) gm/dL Albumin 2.0 L (3.2-5.2) gm/dL Triglycerides 133 (<150) mg/dl Calcium panel 07/04/16 Range/Units 03:48 Calcium 7.9 L (8.6-10.4) mg/dl Phosphorus 4.6 H (2.7-4.5) mg/dL Albumin 2.0 L (3.2-5.2) gm/dL Pituitary panel 07/04/16 Range/Units 03:48 Sodium 143 (133-145) mmol/L Potassium 4.3 (3.3-5.1) mmol/L Chloride 106 (96-108) mmol/L Carbon Dioxide 20 L (22-30) mmol/L BUN 21 (8-23) mg/dl Creatinine 0.9 (0.6-1.1) mg/dl Glucose 113 H (70-105) mg/dL Calcium 7.9 L (8.6-10.4) mg/dl Adrenal panel 07/04/16 Range/Units 03:48 Sodium 143 (133-145) mmol/L Potassium 4.3 (3.3-5.1) mmol/L Chloride 106 (96-108) mmol/L Carbon Dioxide 20 L (22-30) mmol/L BUN 21 (8-23) mg/dl Creatinine 0.9 (0.6-1.1) mg/dl Glucose 113 H (70-105) mg/dL Calcium 7.9 L (8.6-10.4) mg/dl Total Bilirubin 0.2 (0.0-1.0) mg/dL AST 19 (0-37) U/l ALT 16 (0-40) U/l Alkaline Phosphatase 97 (39-117) U/L Total Protein 5.7 L (5.9-8.4) gm/dL Albumin 2.0 L (3.2-5.2) gm/dL Medical - PN: A/P - Time Spent With Patient Total time spent is greater than 50% in coordination of care (as documented) at patient's floor/unit and/or counseling patient: SIRS. Source of sepsis is currently the wound with likely urinary and bloodstream infection as well. Treatment options, possible scenarios discussed at length. Assessment. SICK patient. SIRS possibility of evolving MOF. S/P OR debridement of obvious source necrotic csssi of sacral decubitus . Plan: TO continue with supportive care. Agree with broad spectrum i v antibiotic coverage. Will await family decision / DNR status etc. Will continue to closely monitor evolving situation and continue current management. Reassess again in AM. Greater than 35 minutes (1) Sepsis affecting skin Status: Acute Current Visit: Yes (2) Pressure ulcer of coccygeal region, stage 4 Status: Acute Current Visit: Yes (3) Malnutrition compromising bodily function Status: Acute Current Visit: Yes
[2016-07-04] MEDS ORDERED: SENNOSIDES/DOCUSATE SODIUM 1 TAB TABLET PO SCH (21:00)
[2016-07-05] MEDS: IMIPENEM/CILASTATIN SODIUM 500 MG in 0.9 % SODIUM CHLORIDE 100 ML IV SCH (05:14)
[2016-07-05] MEDS: 0.9 % SODIUM CHLORIDE 10 ML SYRINGE IV SCH (05:14)
[2016-07-05 05:17] LABS: Mean Cell Volume 83.1 fL (80.0-100.0); Mean Corpuscular HGB Conc 32.2 g/dL (31.0-36.0); Mean Corpuscular Hemoglobin 26.8 pg (26.0-34.0); Platelet Count 341 K/mcL (140-440); RBC 2.63 M/mcL (4.00-5.20); Red Cell Distribution Width 15.4 % (11.5-14.5)
[2016-07-05 05:54] LABS: ALT/SGPT 15 U/l (0-40); Albumin 1.9 gm/dL (3.2-5.2); Albumin/Globulin Ratio 0.6 (1.0-2.3); Alkaline Phosphatase 75 U/L (39-117); Bilirubin,Direct < 0.2 mg/dL (0.0-0.3); Blood Urea Nitrogen 23 mg/dl (8-23); Gamma Glutamyl Transpeptidase 16 U/L (5-36); Magnesium 1.6 mg/dL (1.6-2.5); Phosphorous 1.5 mg/dL (2.7-4.5); Uric Acid 3.9 mg/dL (2.5-8.0)
[2016-07-05 06:58] LABS: Anisocytosis 1+ (NONE SEEN); Band Neutrophils % 3 % (0-10); Lymphocytes % 14 % (15-49); Monocytes % (Manual) 7 % (1-9); Platelet Estimate NORMAL (NORMAL); RBC Morphology ABNORM (NORMAL); Segmented Neutrophils % 76 % (38-78)
[2016-07-05] MEDS ORDERED: PANTOPRAZOLE 40 MG TABLET PO SCH (07:30)
[2016-07-05] MEDS ORDERED: GENTAMICIN SULFATE 40 MG, CLINDAMYCIN 300 MG, BACITRACIN 25,000 UNIT in SODIUM CHLORIDE... IRR SCH (09:00)
[2016-07-05] MEDS: DOCUSATE SODIUM 100 MG CAPSULE PO SCH (09:40)
[2016-07-05] MEDS: MULTIVIT,THER IRON,CA,FA & MIN 1 TABLET PO SCH (09:41)
[2016-07-05] MEDS: HEPARIN 5,000 UNIT/ML VIAL SQ SCH (09:41)
[2016-07-05] MEDS ORDERED: DEXTROSE 5%-1/2NS W/20MEQ KCL 1,000 ML IV SCH (10:00)
--- NOTE | 2016-07-05 11:12 | Internal Med Progress Note ---
Medical - PN: Subj Patient information: Note initiated : 07/05/16 at 11:10 am Service Date, if different from initiated Date: [] Patient: Sunita Gomes 81 y/o F admitted on 07/02/16 for Debridement of Wound. Chief Complaint: [] Interval history: Patient seen examined overnight events noted Case discussed with case management, pts , son, and family They do not wish to persue any aggresive measures, this was also apparently the wish of thep atient They want to discontinue IV antibiotics, IV fluids and do nto wish to persue with blood trasnfusion. Plan is presently to swing patient to swing bed status for palliative care D/c IV fluids, d/c IV antibiotics, no transfusion as per request of family and patients wishes. Pertinent ROS: unable, dementia - Constitutional Vitals: Vital Signs Temp Pulse Resp BP Pulse Ox 97.8 F 86 20 122/62 96 07/05/16 08:00 07/05/16 09:23 07/05/16 08:00 07/05/16 08:00 07/05/16 08:00 Period Temp Pulse Resp BP Sys/Chase Pulse Ox Last 24 Hr 96.8 F-98.4 F 74-86 16-22 90-122/58-84 96-98 Intake and Output 07/04/16 07/05/16 07/05/16 21:59 05:59 13:59 Intake Total 2019 300 / 300 10 / 10 Output Total 250 / 250 250 / 250 1500 / 1500 Balance 1770 / 1770 50 / 50 -1490 / -1490 Weight 116 lb Intake & Output: Intake & Output 07/04/16 07/05/16 07/05/16 21:59 05:59 13:59 Intake Total 2019 300 / 300 10 / 10 Output Total 250 / 250 250 / 250 1500 / 1500 Balance 1770 / 1770 50 / 50 -1490 / -1490 Weight 116 lb Intake: IV 1100 / 1100 100 / 100 Sodium Chloride 0.9% 1, 1000 / 1000 000 ml @ 50 mls/hr IV . Q20H [facility] Rx#:[id number] Sodium Chloride 0.9% 100 100 / 100 100 / 100 ml @ 100 mls/hr IV Q8H [facility] with Primaxin 500 mg Rx#:[id number] Oral 920 / 920 200 / 200 10 / 10 Output: Urine Catheter Amount 250 / 250 250 / 250 900 / 900 Void Amount 600 / 600 Uretheral ([place]) 600 / 600 Other: Meal Lunch Breakfast Percent of Meal Consumed 50% 25% Feeding Ability Total Assistance Exam: Constitutional; Afebrile, awake, not cooperative, does not recognize me. Eyes- No icterus, PNo periorbital swelling Ears- Ext ear normal, hearing normal to conversation. Neck- Midline trachea, supple Respiratory system: Air Entry equal on both sides, No crackles or wheezing, no rhonchi. CVS- Rate rhythm regular, Abdomen- Soft nontender abdomen, no organomegaly, no tenderness, no guarding or rigidity, DATA STORAGE SPECIALIST- AOOx0, moving all extremities, Medical - PN: Obj Da - Labs CBC & Chem 7: 07/05/16 03:48 07/05/16 03:48 Labs: Abnormal Lab Results 07/05/16 07/05/16 07/04/16 03:48 03:48 03:48 WBC 13.6 H RBC 2.63 L Hgb 7.1 L Hct 21.9 L RDW 15.4 H Seg Neutrophils % Lymphocytes % 14 L RBC Morphology Abnorm A Anisocytosis 1+ A RBC Fragments Occ A ESR Chloride Carbon Dioxide 20 L Anion Gap 17.0 H Glucose 113 H Calcium 7.2 L 7.9 L Phosphorus 1.5 L 4.6 H Total Protein 4.9 L 5.7 L Albumin 1.9 L 2.0 L Albumin/Globulin Ratio 0.6 L 0.5 L Triglycerides Urine Protein Urine RBC Urine WBC Calcium Oxalate Crystal Urine Mucus 07/04/16 07/03/16 07/03/16 03:48 03:55 03:55 WBC 18.2 H 14.4 H RBC 3.05 L 3.09 L Hgb 8.2 L 8.3 L Hct 25.8 L 26.1 L RDW 15.1 H 14.8 H Seg Neutrophils % 84 H 81 H Lymphocytes % 8 L 11 L RBC Morphology Anisocytosis RBC Fragments ESR Chloride 109 H Carbon Dioxide Anion Gap Glucose Calcium 8.4 L Phosphorus Total Protein 5.8 L Albumin 2.1 L Albumin/Globulin Ratio 0.6 L Triglycerides 173 H Urine Protein Urine RBC Urine WBC Calcium Oxalate Crystal Urine Mucus 07/02/16 07/02/16 16:09 15:01 WBC RBC Hgb Hct RDW Seg Neutrophils % Lymphocytes % RBC Morphology Anisocytosis RBC Fragments ESR 65 H Chloride Carbon Dioxide Anion Gap Glucose Calcium Phosphorus Total Protein Albumin Albumin/Globulin Ratio Triglycerides Urine Protein 30 A Urine RBC 3 H Urine WBC 8 H Calcium Oxalate Crystal Few A Urine Mucus Many A Meds: Medications Acetaminophen (Tylenol) 650 mg PO Q4-6HP PRN PRN Reason: PAIN/FEVER > 101 Docusate Sodium (Colace) 100 mg PO BID [facility] Last Admin: 07/05/16 09:40 Dose: 100 mg Guaifenesin/Codeine Phosphate (Robitussin Ac) 10 ml PO Q4HP PRN PRN Reason: Cough Heparin Sodium (Porcine) (Heparin) 5,000 unit SQ Q12 [facility] Last Admin: 07/05/16 09:41 Dose: 5,000 unit Magnesium Sulfate (Magnesium Sulfate) 2 gm in 50 mls @ 50 mls/hr IV UD PRN PRN Reason: MG = or < 1.7 Acetaminophen (Ofirmev) 1,000 mg in 100 mls @ 200 mls/hr IV Q6HP PRN PRN Reason: PAIN/FEVER > 101 Last Admin: 07/04/16 19:22 Dose: 200 mls/hr Gentamicin Sulfate 40 mg/Clindamycin Phosphate 300 mg/Bacitracin 25,000 unit/ Sodium Chloride 503 mls @ 0 mls/hr IRR DAILY [facility] PRN Reason: As Directed Iron Carb/Multivit/[place]/Folic Acid (Multivitamin W/Minerals) 1 tab PO DAILY [facility] Last Admin: 07/05/16 09:41 Dose: 1 tab Ondansetron HCl (Zofran) 4 mg IV Q4-6HP PRN PRN Reason: Nausea And Vomiting Pantoprazole Sodium (Protonix) 40 mg PO QAMAC [facility] Last Admin: 07/05/16 09:40 Dose: 40 mg Potassium Chloride (Klor-Con) 40 meq PO DAILYP PRN PRN Reason: K+ < 3.5 Senna/Docusate Sodium (Senna Plus Tablet) 1 tab PO HS [facility] Last Admin: 07/04/16 22:07 Dose: 1 tab Sodium Chloride (Saline Flush) 10 ml IV Q8 [facility] Last Admin: 07/05/16 05:14 Dose: Not Given Trazodone HCl (Desyrel) 50 mg PO HSP PRN PRN Reason: Insomnia Medical - PN: A/P - Time Spent With Patient Total time spent is greater than 50% in coordination of care (as documented) at patient's floor/unit and/or counseling patient: (1) Anemia Status: Acute Current Visit: Yes (2) Decubitus ulcer Status: Acute Current Visit: Yes (3) Malnutrition compromising bodily function Status: Acute Current Visit: Yes (4) Pressure ulcer of coccygeal region, stage 4 Status: Acute Current Visit: Yes (5) Severe sepsis Status: Acute Current Visit: Yes - Narrative A/P Narrative: Patient family has chosen the route of palliative care will d/c IV antibiotics and fluids. patient to be changed to swing bed status. Hospitalist team will assume primary care for the patient once the patient is discharged from the wound care service, under swing service.
--- NOTE | 2016-07-05 11:48 | General Surgery Progress Note ---
Subjective Patient reports: pain is less, no bowel movement, afebrile Narrative: Note initiated : 07/05/16 at 11:42 am Service Date, if different from initiated Date: [] Patient: Sunita Gomes 81 y/o F admitted on 07/02/16 for Debridement of Wound. Chief Complaint: [] Objective Temp Pulse Resp BP Pulse Ox 97.8 F 86 20 122/62 96 07/05/16 08:00 07/05/16 09:23 07/05/16 08:00 07/05/16 08:00 07/05/16 08:00 AVSS. No changes in GIACOMO. HEENT WNL, Lungs CTA, Heart No murmur Soft abdomen BS + L/E. Dressing changed. Packing removed. Clean wound without odor. Adherent eschar.at base and to bone and around edges inferiorly. Wound C/S . E Coli and Strep ON IV abs and Topical antibiotics with GCB solution. Hct 21 Creatinine Normal. CASE DISCUSSED WITH PRANAV , DR. RODRÍGUEZ Hospitalist and with patient's son and family members. Per family and patient's wishes, NO further aggressive treatment to be undertaken. No blood transfusions. Patient to be discharged from MED SURG service to [facility] Bed / Admission status under Hospitalist care Dr. RODRÍGUEZ. I will follow patient from wound care point of view, - Additional Data Intake & Output - Last 24 hours: Intake & Output 07/03/16 07/04/16 07/05/16 07/06/16 05:59 05:59 05:59 05:59 Intake Total 350 / 350 2550 / 2550 2830 / 2830 10 / 10 Output Total 350 / 350 500 / 500 600 / 600 1500 / 1500 Balance 0 / 0 2049 / 2050 2230 / 2230 -1490 / -1490 Weight 111 lb 116 lb 116 lb - Labs 07/05/16 03:48 07/05/16 03:48 Diabetes panel 07/05/16 Range/Units 03:48 Sodium 135 (133-145) mmol/L Potassium 3.7 (3.3-5.1) mmol/L Chloride 103 (96-108) mmol/L Carbon Dioxide 23 (22-30) mmol/L BUN 23 (8-23) mg/dl Creatinine 0.7 (0.6-1.1) mg/dl Glucose 103 (70-105) mg/dL Calcium 7.2 L (8.6-10.4) mg/dl AST 17 (0-37) U/l ALT 15 (0-40) U/l Alkaline Phosphatase 75 (39-117) U/L Total Protein 4.9 L (5.9-8.4) gm/dL Albumin 1.9 L (3.2-5.2) gm/dL Triglycerides 119 (<150) mg/dl Calcium panel 07/05/16 Range/Units 03:48 Calcium 7.2 L (8.6-10.4) mg/dl Phosphorus 1.5 L (2.7-4.5) mg/dL Albumin 1.9 L (3.2-5.2) gm/dL Pituitary panel 07/05/16 Range/Units 03:48 Sodium 135 (133-145) mmol/L Potassium 3.7 (3.3-5.1) mmol/L Chloride 103 (96-108) mmol/L Carbon Dioxide 23 (22-30) mmol/L BUN 23 (8-23) mg/dl Creatinine 0.7 (0.6-1.1) mg/dl Glucose 103 (70-105) mg/dL Calcium 7.2 L (8.6-10.4) mg/dl Adrenal panel 07/05/16 Range/Units 03:48 Sodium 135 (133-145) mmol/L Potassium 3.7 (3.3-5.1) mmol/L Chloride 103 (96-108) mmol/L Carbon Dioxide 23 (22-30) mmol/L BUN 23 (8-23) mg/dl Creatinine 0.7 (0.6-1.1) mg/dl Glucose 103 (70-105) mg/dL Calcium 7.2 L (8.6-10.4) mg/dl Total Bilirubin < 0.2 (0.0-1.0) mg/dL AST 17 (0-37) U/l ALT 15 (0-40) U/l Alkaline Phosphatase 75 (39-117) U/L Total Protein 4.9 L (5.9-8.4) gm/dL Albumin 1.9 L (3.2-5.2) gm/dL Medical - PN: A/P - Time Spent With Patient Total time spent is greater than 50% in coordination of care (as documented) at patient's floor/unit and/or counseling patient: S/P Surgical Debridement of Stage 4 , sacral decubitus with SEPSIS. Patient care changed from acute to palliative Swing Bed Status. PLAN. Discharge patient from wound care service of Dr. Narayan. Admit to Swing Bed Status, Hospitalist service. WOUND CARE ORDERS; Clean wound with NS. Apply WASHE soaked gaze on wound and dwell for 5 mts. Later remove gaze and dress wound with GCB soaked wet gauze and reinforce with dry gauze and ABD pad and Medipore dressings. TO be changed three times a day. Patient to lie on sides. Change position q 2 hrly. Greater than 35 minutes (1) Sepsis affecting skin Status: Acute Current Visit: Yes (2) Pressure ulcer of coccygeal region, stage 4 Status: Acute Current Visit: Yes (3) Malnutrition compromising bodily function Status: Acute Current Visit: Yes
--- NOTE | 2016-07-05 11:59 | Discharge Plan ---
[id number] 81 year old female with SIRS due to Grade 4 infected sacral decubitus with gangrene and SIRS, underwent Excision debridement for wound care in OR on 07/04/2016, She has dementia and anemia with malnutrition. POST OPERATIVELY, after detailed discussions and conference with patient's children , family members and / and Hospital Personnel and Hospitalist Physician, decision made to discharge patient from wound care service. To be admitted under Hospitalist care for palliative care under Swing Bed Status. Wound care service to follow patient for wound related care / services. Activity: other Diet: Regular Diet Additional Instructions: Palliative wound care and comfort measures only. On going wound care and dressing changes discussed with family and nursing staff - Follow up Plan Follow up with: Priscilla Stock MD [Primary Care Provider] - Disposition: [facility] Swing Bed Prognosis: Serious Rehab Potential: Undetermined I certify that the patient requires SNF services.: Yes Overall status at discharge: other (Patient made DNR and palliative care only.)
== END 2016-07-05 11:59 | disposition other institution (70) | DRG 853 ==
LOC: MEDSUR 09:57 → ED 09:57 → MEDSUR 14:25 → OBSVTOIN 14:42 → MEDSUR 07-03 06:41
PROVIDERS: ADMIT Specialist; ATTEND Specialist

== ENCOUNTER 2016-07-05 10:43 | Inpatient (IN) ==
[2016-07-05] MEDS ORDERED: ONDANSETRON ODT 4 MG TABLET SL PRN (12:30)
[2016-07-05] MEDS ORDERED: LACTOPEROXI/GLUC OXID/POT THIO 1 EACH GEL..EA. TOPICAL PRN (12:30)
[2016-07-05] MEDS ORDERED: ONDANSETRON 4 MG/2 ML VIAL IV PRN (12:30)
[2016-07-05] MEDS ORDERED: LORazepam 2 MG/ML VIAL IV PRN (12:30)
--- NOTE | 2016-07-05 12:34 | Internal Med History&Physical ---
Medical - H&P: [facility] Patient information: Note initiated : 07/05/16 at 12:32 pm Service Date, if different from initiated Date: [] Patient: Sunita Gomes 81 y/o F admitted on 07/05/16 for coccyx wound infection. Chief Complaint: [] History of present illness: Ms. Gomes is a 81 year old female with h/o of advanced dementia, who was admitted to the inpatient side for sepsis, secondary to decubitus wound under wound care service. After evaluating the patient condition and need for aggressive treatment, the patients family chose comfort care for the patient. The patient is therefore being transferred to the Swing bed status under medicine/ hospitalist service The patient has h/o advanced dementia, it seems she is non verbal at baseline, lives with her who is the primary post acute care registered nurse. The patient over the last few months has been developing a decubitus ulcer on the 5x5 right gluteal region which was necrotic foul smelling. It was a stage 4 ulcer. and was being treated with IV antibiotics adn wound care. The patient also developed sepsis and bacteremia due to this ulcer. The patient antibiotics was escalated to imipenum, but the patient was not transferred to ICU as the family did not wish any aggressive measures. They wanted to treat the infection with Antibiotics and wound care, and needed more time to decide on palliative care. The patients blood count kept dropping and today was 7.1, no e/o gross bleed, no laurie Today the patients and children explained to myself and the case management that patient will treated as per palliative care and they did not wish any artificial feeding, no IV antibiotics or fluids. I explained to them that this will likely result in patients and at this point they only wish for comfort care for the patient. The patient also has expressed similar wishes in the past. appropriate paper work was signed and patient admitted to swing bed status for palliative care. ROS unobtainable: due to mental status Medical - H&P: PM Medical history: Medical History Anemia (Acute) Decubitus ulcer (Acute) Malnutrition compromising bodily function (Acute) Otitis externa (Acute) Pressure ulcer of coccygeal region, stage 4 (Acute) Sepsis affecting skin (Acute) Severe sepsis (Acute) Syncope and collapse (Acute) Family history: reviewed and not pertinent Pertinent family history: Mother with CAD Social history: LIves with ex smoker non functional at baseline, Medical - H&P: Meds Home Medications Medication Instructions Recorded Confirmed Type Calcium Carbonate/Vitamin D3 1 tab PO TID 05/01/15 07/02/16 History [Calcium 600 + Vit D 400 Tablet] Multi Vitamin 1 tab PO DAILY 05/01/15 07/02/16 History Aspirin/Calcium Carbonate/Mag 325 mg PO QAM 07/02/16 07/02/16 History [Aspirin Buffered 325 mg Tab] Allergies Allergy/AdvReac Type Severity Reaction Status Date / Time Sulfa (Sulfonamide Allergy Severe Unknown Verified 07/02/16 15:24 Antibiotics) nitrofurantoin Allergy Unknown Verified 07/02/16 10:02 [From Furadantin] Medical - H&P: Exam - Constitutional General appearance: no acute distress - Head Head exam: Present: atraumatic, normal inspection - Eye Eye exam: Absent: periorbital swelling, periorbital tenderness, scleral icterus - ENT ENT exam: Present: mucous membranes moist - Neck Neck exam: Present: normal inspection - Respiratory Respiratory exam: Present: normal respiratory exam. Absent: accessory muscle use, respiratory distress, stridor, wheezes - Cardiovascular Cardiovascular exam: Present: normal rate and rhythm, +S1, +S2 - GI/Abdominal GI/Abdominal exam: Present: normal bowel sounds, soft. Absent: tenderness - Neurological Exam Additional comments: awake, does not obey commands moves all extremities - Skin Additional comments: stage 4 ulcer 5x5 cms necrotic gangreous base, in the right gluteal region Medical - H&P: A/P (1) Alzheimer's dementia Current visit: Yes Status: Acute (2) Dysphagia Current visit: Yes Status: Acute (3) Anemia Current visit: No Status: Acute (4) Decubitus ulcer Current visit: No Status: Acute (5) Severe sepsis Current visit: No Status: Acute (6) Palliative care patient Current visit: Yes Status: Acute - Narrative A/P Narrative: patient with advanced dementia, sepsis, and decubitus ulcer, with overall poor progonosis is admitted to swing bed status for palliative care and comfort care Plan to keep patient comfortable, no unnecessary blood draws Vitals q shift oxygen for comfort morphine and Ativan for comfort and anxiety no need to resume home Meds at this time Diet is dysphagia 2 with thin liquids as per last . no DVT prophylaxis to avoid unnecessary injections and discomfort..
[2016-07-05] MEDS: 0.9 % SODIUM CHLORIDE 10 ML SYRINGE IV SCH (14:48)
[2016-07-06] MEDS: 0.9 % SODIUM CHLORIDE 10 ML SYRINGE IV SCH ×3 (03:26→14:05)
[2016-07-06] MEDS: morphine 20 MG/ML ORAL.CONC SL PRN (20:04)
[2016-07-07] MEDS: 0.9 % SODIUM CHLORIDE 10 ML SYRINGE IV SCH ×4 (01:53→22:14)
[2016-07-07] MEDS: morphine 20 MG/ML ORAL.CONC SL PRN ×2 (05:49→14:25)
[2016-07-07] MEDS ORDERED: MAGNESIUM HYDROXIDE 30 ML ORAL.SUSP PO PRN (19:34)
[2016-07-07] MEDS ORDERED: BISACODYL 10 MG SUPP.RECT PR PRN (19:34)
[2016-07-07] MEDS ORDERED: FLEETS ADULT ENEMA PR PRN (19:34)
[2016-07-07] MEDS: DOCUSATE SODIUM 100 MG CAPSULE PO SCH (22:14)
[2016-07-08] MEDS: morphine 20 MG/ML ORAL.CONC SL PRN ×2 (01:00→21:19)
[2016-07-08] MEDS: 0.9 % SODIUM CHLORIDE 10 ML SYRINGE IV SCH ×3 (07:56→23:32)
[2016-07-08] MEDS: DOCUSATE SODIUM 100 MG CAPSULE PO SCH ×2 (07:57→21:19)
[2016-07-09] MEDS: 0.9 % SODIUM CHLORIDE 10 ML SYRINGE IV SCH ×3 (05:56→22:05)
[2016-07-09] MEDS: morphine 20 MG/ML ORAL.CONC SL PRN ×2 (06:57→18:34)
[2016-07-09] MEDS: DOCUSATE SODIUM 100 MG CAPSULE PO SCH ×2 (10:30→22:04)
[2016-07-10] MEDS: 0.9 % SODIUM CHLORIDE 10 ML SYRINGE IV SCH (05:19)
[2016-07-10] MEDS: DOCUSATE SODIUM 100 MG CAPSULE PO SCH (10:48)
--- NOTE | 2016-07-10 11:19 | Discharge Summary ---
Medical - DS: Prov Patient information: Note initiated : 07/10/16 at 11:17 am Service Date, if different from initiated Date: [] Patient: Sunita Gomes 81 y/o F admitted on 07/05/16 for Coccyx Wound Infection /Sepsis, Decubitus Ulcer. Chief Complaint: [] Date of admission: 07/05/16 11:59 Discharge date: 07/10/16 Primary care physician: [f_Reg Prim Care Provider] Medical - DS: Meds - Discharge Medications Prescriptions: LORazepam [Lorazepam Intensol] 2 mg PO Q4H PRN #20 ml PRN Reason: Anxiety fentaNYL [Fentanyl] 25 mcg TD Q72 20 Days morphine 10 mg PO Q2HP PRN #20 oral.conc PRN Reason: Anxiety Active and Home Medications: Home Medications Calcium Carbonate/Vitamin D3 [Calcium 600-Vit D3 400 Tablet] 2 appful PO TID [History Confirmed 07/05/16 Last Taken 07/02/16 08:00] Multi Vitamin 1 appful PO DAILY 05/01/15 [History Confirmed 07/05/16 Last Taken 07/02/16 08:00] Aspirin/Calcium Carbonate/Mag [Aspirin Buffered 325 mg Tab] 325 mg PO QAM [History Confirmed 07/05/16 Last Taken 07/02/16 08:00] Fish Oil 1,000 mg PO DAILY 07/05/16 [History Confirmed 07/05/16 Last Taken Unknown] Docusate Sodium [Colace] 100 mg PO BID capsule 07/10/16 [Rx Last Taken Unknown] LORazepam [Lorazepam Intensol] 2 mg PO Q4H PRN #20 ml 07/10/16 [Rx Last Taken Unknown] fentaNYL [Fentanyl] 25 mcg TD Q72 20 Days 07/10/16 [Rx Last Taken Unknown] morphine 10 mg PO Q2HP PRN #20 oral.conc 07/10/16 [Rx Last Taken Unknown] Medical - DS: Hosp Hospital course: DISCHARGE DIAGNOSES * Infected sacral decubitus ulcer * Severe sepsis secondary to above * advanced Alzheimer's dementia * palliative care BRIEF HOSPITAL COURSE 07/05-Ms. Gomes is a 81 year old female with h/o of advanced dementia, who was admitted to the inpatient side for sepsis, secondary to decubitus wound under wound care service. After evaluating the patient condition and need for aggressive treatment, the patients family chose comfort care for the patient. The patient is therefore being transferred to the Swing bed status under medicine/ hospitalist service The patient has h/o advanced dementia, it seems she is non verbal at baseline, lives with her who is the primary health and social care teacher. The patient over the last few months has been developing a decubitus ulcer on the 5x5 right gluteal region which was necrotic foul smelling. It was a stage 4 ulcer. and was being treated with IV antibiotics adn wound care. The patient also developed sepsis and bacteremia due to this ulcer. The patient antibiotics was escalated to imipenum, but the patient was not transferred to ICU as the family did not wish any aggressive measures. They wanted to treat the infection with Antibiotics and wound care, and needed more time to decide on palliative care. The patients blood count kept dropping and today was 7.1, no e/o gross bleed, no laurie Today the patients and children explained to myself and the case management that patient will treated as per palliative care and they did not wish any artificial feeding, no IV antibiotics or fluids. I explained to them that this will likely result in patients and at this point they only wish for comfort care for the patient. The patient also has expressed similar wishes in the past. appropriate paper work was signed and patient admitted to swing bed status for palliative care. patient with advanced dementia, sepsis, and decubitus ulcer, with overall poor progonosis is admitted to swing bed status for palliative care and comfort care 07/10- patient discharge in the care center with continued comfort care measures. Discharge diagnosis: infected sacral decubitus ulcer with sepsis - Time Spent with Patient Total time spent providing and/or coordinating discharge services: Greater than 30 minutes Medical - DS: Exam - Constitutional Vitals: Vital Signs Temp Pulse Resp BP Pulse Ox 07/10/16 07:33 97.7 F 83 20 107/66 96 07/09/16 20:00 98.4 F 89 20 117/69 96 Intake and Output 07/09/16 07/10/16 07/10/16 21:59 05:59 13:59 Intake Total 360 / 360 770 / 770 Output Total 750 / 750 800 / 800 Balance -390 / -390 -30 / -30 Intake: Oral 360 / 360 770 / 770 Output: Urine Catheter Amount 750 / 750 800 / 800 Other: Meal Dinner Percent of Meal Consumed 100% # Bowel Movements 1 Weight 115 lb Medical - DS: A/P - Patient/Caregiver Discharge Instructions Activity: increase activity as tolerated (per comfort) Diet: Regular Diet (per comfort) Additional Instructions: continue comfort measures Diet and activity as per comfort fall precautions decubitus care Dementia care Prescriptions: LORazepam [Lorazepam Intensol] 2 mg PO Q4H PRN #20 ml PRN Reason: Anxiety fentaNYL [Fentanyl] 25 mcg TD Q72 20 Days morphine 10 mg PO Q2HP PRN #20 oral.conc PRN Reason: Anxiety - Follow up Plan Disposition: Xfer SNF Prognosis: Serious Rehab Potential: Serious I certify that the patient requires SNF services: Yes Overall status at discharge: patient is not back to baseline Medical - DS: Qual - VTE Deep Vein Thrombosis/Pulmonary Embolism Present on Admission: No
== END 2016-07-10 14:40 | DRG 871 ==
LOC: MEDSUR 11:59
PROVIDERS: ADMIT Internal Medicine; ATTEND Internal Medicine